=== PATIENT | male | born 1980 | race Caucasian/White ===

== ENCOUNTER 2020-10-30 17:52 | Emergency (ER) | payer SELFPAY ==
[~2020-10-30] VITALS: Ht 172.7 cm; Wt 86.2 kg
[~2020-10-30 17:52] MED LIST: HYDACE5 PO; IBUP600 PO
[2020-10-30] MEDS ORDERED: OMEP20ER PO (18:14)
[2020-10-30 18:23] LABS: BASOPHILS PERCENT AUTO 1 % (0-2); EOSINOPHILS ABSOLUTE AUTO 0.16 K/mm3 (0.00-0.68); EOSINOPHILS PERCENT AUTO 2 % (0-6); Hematocrit 41.7 % (37.0-53.0); Hemoglobin 13.2 g/dL (13.5-17.5); IMMATURE GRAN ABSOLUTE AUTO 0.05 K/mm3 (0.00-0.10); IMMATURE GRAN PERCENT AUTO 1 % (0-1); LYMPHOCYTES ABSOLUTE AUTO 1.42 K/mm3 (0.84-5.20); LYMPHOCYTES PERCENT AUTO 15 % (21-46); MONOCYTES ABSOLUTE AUTO 0.68 K/mm3 (0.16-1.47); MONOCYTES PERCENT AUTO 7 % (4-13); Mean Corpuscular HGB 27.8 pg (26.0-34.0); Mean Corpuscular HGB Conc 31.7 g/dL (31.5-36.5); Mean Corpuscular Volume 88 fL (80-100); Mean Platelet Volume 10.5 fL (9.1-12.4); NEUTROPHILS ABSOLUTE AUTO 7.09 K/mm3 (1.96-9.15); NEUTROPHILS PERCENT AUTO 75 % (41-73); Platelet Count 243 K/mm3 (150-400); RDW Coefficient Variation 14.1 % (11.7-14.2); RDW Standard Deviation 45.6 fL (35.1-46.3); Red Blood Cell Count 4.75 M/mm3 (4.30-5.90)
[2020-10-30 18:45] LABS: Alanine Aminotransfer (ALT/SGP 127 U/L (12-78); Albumin, Blood 3.9 g/dL (3.4-5.0); Alk Phos 117 U/L (50-136); Anion Gap 6 mmol/L (6-16); Aspartate Aminotrans (AST/SGOT 165 U/L (12-37); Bilirubin, Total 0.4 mg/dL (0.1-1.0); Blood Urea Nitrogen 14 mg/dL (8-24); Bun/Creatinine Ratio 13.1 (12.0-20.0); CO2, Blood 28 mmol/L (21-32); Calcium, Blood 9.1 mg/dL (8.5-10.1); Chloride, Blood 106 mmol/L (98-108); Creatinine, Blood 1.07 mg/dL (0.60-1.20); Globulin, Blood 4.1 g/dL (2.2-4.0); Glomerular Filtration Rate >60 (60-); Glucose, Blood 111 mg/dL (70-99); Potassium, Blood 4.1 mmol/L (3.5-5.5); Sodium, Blood 140 mmol/L (136-145); Troponin I <0.015 ng/mL (0.000-0.040)
== END 2020-10-30 19:18 | disposition home or self-care (01) ==
LOC: ER 17:52
PROVIDERS: Physician Assistant
DX: F41.9 Anxiety disorder, unspecified (principal); K29.70 Gastritis, unspecified, without bleeding; Z79.899 Other long term (current) drug therapy
CPT/HCPCS: 36415; 71046; 80053; 83690; 84484; 85025; 85379; 93005; 93010; 96374; 96375; 99285-25; A9270; J2270; J2405; J7030

== ENCOUNTER 2022-12-19 23:22 | Emergency (ER) | payer OTHER ==
[~2022-12-19] VITALS: Ht 172.7 cm; Wt 79.4 kg
[~2022-12-19 23:22] MED LIST changes: +OMEP20ER PO
[2022-12-19 23:27] VITALS: BP 123/85
[2022-12-19] MEDS ORDERED: TADALAFIL20 M1 PO (23:29)
[2022-12-19] MEDS ORDERED: OMEPRAZOLE DR 20 MG (23:29)
== END 2022-12-19 23:43 | disposition home or self-care (01) ==
LOC: ER 23:22
DX: M25.532 Pain in left wrist (principal)

== ENCOUNTER 2023-01-07 11:03 | Emergency (ER) | payer OTHER ==
[~2023-01-07] VITALS: Ht 142.2 cm; Wt 81.7 kg
[~2023-01-07 11:03] MED LIST changes: +OMEPRAZOLE DR 20 MG; +TADALAFIL20 M1 PO
[2023-01-07 11:47] LABS: BASOPHILS PERCENT AUTO 1 % (0-2); EOSINOPHILS ABSOLUTE AUTO 0.17 K/mm3 (0.00-0.68); EOSINOPHILS PERCENT AUTO 2 % (0-6); Hematocrit 44.1 % (37.0-53.0); Hemoglobin 14.6 g/dL (13.5-17.5); IMMATURE GRAN ABSOLUTE AUTO 0.03 K/mm3 (0.00-0.10); IMMATURE GRAN PERCENT AUTO 0 % (0-1); LYMPHOCYTES ABSOLUTE AUTO 1.42 K/mm3 (0.84-5.20); LYMPHOCYTES PERCENT AUTO 12 % (21-46); MONOCYTES ABSOLUTE AUTO 0.69 K/mm3 (0.16-1.47); MONOCYTES PERCENT AUTO 6 % (4-13); Mean Corpuscular HGB 27.3 pg (26.0-34.0); Mean Corpuscular HGB Conc 33.1 g/dL (31.5-36.5); Mean Corpuscular Volume 82 fL (80-100); Mean Platelet Volume 11.4 fL (9.1-12.4); NEUTROPHILS ABSOLUTE AUTO 9.16 K/mm3 (1.96-9.15); NEUTROPHILS PERCENT AUTO 79 % (41-73); Platelet Count 330 K/mm3 (150-400); RDW Coefficient Variation 14.8 % (11.7-14.2); RDW Standard Deviation 44.4 fL (35.1-46.3); Red Blood Cell Count 5.35 M/mm3 (4.30-5.90); White Blood Cell Count 11.57 K/mm3 (4.00-11.30)
[2023-01-07 11:59] LABS: Albumin/Globulin Ratio 1.1 (0.8-1.8); Bilirubin, Total 0.4 mg/dL (0.1-1.0); Bun/Creatinine Ratio 9.9 (12.0-20.0); Calcium, Blood 9.6 mg/dL (8.5-10.1); Creatinine, Blood 1.21 mg/dL (0.60-1.20); Globulin, Blood 3.7 g/dL (2.2-4.0); Total Protein, Blood 7.7 g/dL (6.4-8.2)
[2023-01-07 13:30] VITALS: BP 124/65
== END 2023-01-07 14:10 | disposition home or self-care (01) ==
LOC: ER 11:03
PROVIDERS: Student in an Organized Health Care Education/Training Program
DX: N13.2 Hydronephrosis with renal and ureteral calculous obstruction (principal)
CPT/HCPCS: 74177; 80053; 83690; 85025; 93005; 93010; 96374-59; 96375; 99284-25; J1885; J2405; Q9967

== ENCOUNTER 2023-03-18 06:04 | Emergency (ER) | payer OTHER ==
[~2023-03-18] VITALS: Ht 172.7 cm; Wt 81.7 kg
[2023-03-18 06:32] VITALS: BP 137/86
[2023-03-18] MEDS ORDERED: GABA300 PO (07:26)
[2023-03-18] MEDS ORDERED: NAPR500 PO (07:26)
== END 2023-03-18 07:48 | disposition home or self-care (01) ==
LOC: ER 06:04
DX: G56.02 Carpal tunnel syndrome, left upper limb (principal); Z79.899 Other long term (current) drug therapy; F17.200 Nicotine dependence, unspecified, uncomplicated
CPT/HCPCS: 73110; J1100; J1885

== ENCOUNTER 2023-03-24 12:14 | Emergency (ER) | payer OTHER ==
[~2023-03-24] VITALS: Ht 172.7 cm; Wt 81.7 kg
[~2023-03-24 12:14] MED LIST changes: +GABA300 PO; +NAPR500 PO
[2023-03-24 12:51] VITALS: BP 113/65
[2023-03-24] MEDS ORDERED: Ibuprofen600 MG PO (15:20)
[2023-03-24] MEDS ORDERED: ACET500 PO (15:20)
[2023-03-24] MEDS ORDERED: Prednisone10 MG PO (15:20)
== END 2023-03-24 15:33 | disposition home or self-care (01) ==
LOC: ER 12:14
DX: G56.22 Lesion of ulnar nerve, left upper limb (principal); Z79.899 Other long term (current) drug therapy; F17.200 Nicotine dependence, unspecified, uncomplicated
CPT/HCPCS: 99283; A9270; J7512

== ENCOUNTER 2023-11-23 14:54 | Emergency (ER) | payer OTHER ==
[~2023-11-23] VITALS: Ht 172.7 cm; Wt 72.6 kg
[~2023-11-23 14:54] MED LIST changes: +ACET500 PO; +Ibuprofen600 MG PO; +Prednisone10 MG PO
[2023-11-23 15:21] LABS: BASOPHILS ABSOLUTE AUTO 0.11 K/mm3 (0.00-0.23); BASOPHILS PERCENT AUTO 1 % (0-2); EOSINOPHILS ABSOLUTE AUTO 0.24 K/mm3 (0.00-0.68); EOSINOPHILS PERCENT AUTO 2 % (0-6); Hematocrit 39.5 % (37.0-53.0); Hemoglobin 13.1 g/dL (13.5-17.5); IMMATURE GRAN ABSOLUTE AUTO 0.03 K/mm3 (0.00-0.10); IMMATURE GRAN PERCENT AUTO 0 % (0-1); LYMPHOCYTES ABSOLUTE AUTO 1.49 K/mm3 (0.84-5.20); LYMPHOCYTES PERCENT AUTO 12 % (21-46); MONOCYTES ABSOLUTE AUTO 0.78 K/mm3 (0.16-1.47); MONOCYTES PERCENT AUTO 6 % (4-13); Mean Corpuscular HGB 28.9 pg (26.0-34.0); Mean Corpuscular HGB Conc 33.2 g/dL (31.5-36.5); Mean Corpuscular Volume 87 fL (80-100); Mean Platelet Volume 10.2 fL (9.1-12.4); NEUTROPHILS ABSOLUTE AUTO 10.24 K/mm3 (1.96-9.15); NEUTROPHILS PERCENT AUTO 79 % (41-73); Platelet Count 215 K/mm3 (150-400); RDW Coefficient Variation 14.2 % (11.7-14.2); RDW Standard Deviation 45.3 fL (35.1-46.3); Red Blood Cell Count 4.54 M/mm3 (4.30-5.90); White Blood Cell Count 12.89 K/mm3 (4.00-11.30)
[2023-11-23 15:50] LABS: Albumin, Blood 3.6 g/dL (3.4-5.0); Albumin/Globulin Ratio 1.1 (0.8-1.8); Bilirubin, Total 0.2 mg/dL (0.1-1.0); Bun/Creatinine Ratio 17.1 (12.0-20.0); Calcium, Blood 9.2 mg/dL (8.5-10.1); Creatinine, Blood 0.88 mg/dL (0.60-1.20); Globulin, Blood 3.4 g/dL (2.2-4.0); Potassium, Blood 3.5 mmol/L (3.5-5.5)
[2023-11-23 17:00] VITALS: BP 111/78
== END 2023-11-23 18:01 | disposition home or self-care (01) ==
LOC: ER 14:54
PROVIDERS: Physician Assistant
DX: R07.9 Chest pain, unspecified (principal)
CPT/HCPCS: 71046; 80053; 84484; 85025; 85379; 99285-25